=== PATIENT | male | born 1965 | race Caucasian/White ===

== ENCOUNTER → 2018-03-03 12:36 | Outpatient (CLI) | payer MEDICAID ==
[2015-08-10 09:23] VITALS: BMI 25.0
[~2018-03-03 12:36] MED LIST: GLUCOSAMINE & C1 CAP PO; MSM PO; MULTIPLE VITAMI1 TA1 PO; VIMOVO 500-201 EACH PO
== END | disposition home or self-care (01) ==
LOC: D.MRI 12:36
DX: M51.35 Other intervertebral disc degeneration, thoracolumbar region (principal)

== ENCOUNTER 2019-02-08 14:33 | Emergency (ER) | payer MEDICAID ==
[~2019-02-08] VITALS: Ht 190.5 cm; Wt 95.5 kg
[2019-02-08 14:47] VITALS: Ht 190.5 cm; Wt 95.5 kg
[2019-02-08] MEDS ORDERED: FISH OIL 1,0001 CA1 PO (14:48)
[2019-02-08 15:19] LABS: BASOPHILS 0.1 % (0-2); EOSINOPHILS 2.3 % (0-7); HEMATOCRIT 44.7 % (42.0-54.0); HEMOGLOBIN 15.9 g/dL (13.5-17.5); IMMATURE GRANULOCYTES 0.1 % (0-5); LYMPHOCYTES 29.7 % (15-50); MCH 31.7 pg (26.0-34.0); MCHC 35.6 g/dL (31.0-37.0); MEAN PLATELET VOLUME 9.8 fL (7.4-10.4); MONOCYTES 9.8 % (2-11); PLATELET COUNT 171 10x3/uL (130-400); RBC 5.02 10x6/uL (4.20-6.10); RDW 12.5 % (11.5-14.5); WBC 7.3 10x3/uL (4.8-10.8)
[2019-02-08 15:30] LABS: APTT 27.7 SECONDS (22.8-39.4); INR 1.04 (0.85-1.17); PROTIME 13.1 SECONDS (11.6-15.0)
[2019-02-08 15:41] LABS: ALBUMIN 3.6 g/dL (3.4-5.0); ALKALINE PHOSPHATASE 94 U/L (46-116); ALT (SGPT) 26 U/L (10-68); BILIRUBIN - TOTAL 1.01 mg/dL (0.2-1.3); CALC OSMOLALITY 280 mosm/kg (275-300); CALCIUM 9.3 mg/dL (8.5-10.1); CARBON DIOXIDE 25.2 mmol/L (21.0-32.0); CHLORIDE - SERUM 106 mmol/L (98-107); CREATININE - SERUM 1.1 mg/dL (0.6-1.3); GLUCOSE 107 mg/dL (74-106); POTASSIUM - SERUM 4.1 mmol/L (3.5-5.1); PROTEIN - SERUM 7.6 g/dL (6.4-8.2); SODIUM 141 mmol/L (136-145); UREA NITROGEN 13 mg/dL (7-18); eGFR NON AFRICAN AMERICAN 74 mL/min (90-120)
[2019-02-08 15:53] LABS: AMYLASE - SERUM 79 U/L (25-115); CKMB 0.7 U/L (0.0-3.6); CREATINE KINASE 73 UL (21-232); LIPASE 207 U/L (73-393)
[2019-02-08 15:55] LABS: TROPONIN-I < 0.017 ng/mL (0.000-0.060)
[2019-02-08] MEDS ORDERED: OMEPRAZOLE40 MG PO (16:33)
[2019-02-08 17:13] VITALS: BP 131/90
== END 2019-02-08 17:13 | disposition home or self-care (01) ==
LOC: D.ER 14:33
PROVIDERS: Family Medicine
DX: K21.9 Gastro-esophageal reflux disease without esophagitis (principal); R42 Dizziness and giddiness

== ENCOUNTER → 2019-07-02 10:34 | Outpatient (CLI) | payer MEDICAID ==
[2019-02-08 14:47] VITALS: BMI 26.3
[~2019-07-02 10:34] MED LIST changes: +FISH OIL 1,0001 CA1 PO; +OMEPRAZOLE40 MG PO
--- NOTE | 2019-07-02 11:20 | NUR ---
TIME OUT PERFORMED @ 11:10 A.M. PATIENT, , & PROCEDURED VERIFIED BY DR. ALBERTO AND LILIAN CHOW RT(R)
== END | disposition home or self-care (01) ==
LOC: D.RAD 10:30
PROVIDERS: ATTEND Orthopaedic Surgery
DX: S43.491A Other sprain of right shoulder joint, initial encounter (principal)

== ENCOUNTER 2019-07-29 06:45 | Day surgery (SDC) | payer MEDICAID ==
[~2019-07-29] VITALS: Ht 190.5 cm; Wt 93.0 kg
[2019-07-29 07:17] VITALS: BP 136/89; Ht 190.5 cm; Wt 93.0 kg
[2019-07-29] MEDS ORDERED: HYDROCODON-ACE1 EA10 PO (08:56)
--- NOTE | 2019-07-29 10:55 | NUR ---
PATIENT STATES FEELING MUCH BETTER, HAS WALKED TO BATHROOM WITHOUT UNSTEADINESS OR DIZZINESS, STATES NAUSEA IS GONE NOW, WANTS TO GO HOME. ALREADY DRESSED IN PERSONAL CLOTHING. DISCHARGED HOME VIA WHEELCHAIR TO PRIVATE VEHICLE WITH SPOUSE
--- NOTE | 2019-08-02 10:50 | OP ---
PATIENT NAME: TROY SAPP MEDICAL RECORD: [id number] :61 [facility] DATE: SURGEON: MAGDI HERNANDEZ MD DATE OF OPERATION: 07/29/2019 PREOPERATIVE DIAGNOSES: 1. Rotator cuff tear of the right shoulder. 2. Impingement syndrome of the right shoulder. 3. Acromioclavicular arthritis of the right shoulder. POSTOPERATIVE DIAGNOSES: 1. Rotator cuff tear of the right shoulder. 2. Impingement syndrome of the right shoulder. 3. Acromioclavicular arthritis of the right shoulder. PROCEDURES: 1. Arthroscopic rotator cuff repair of the right shoulder. 2. Arthroscopic distal clavicle excision done through separate incision - 1 cm. 3. Arthroscopic subacromial decompression, acromioplasty and bursectomy. SURGEON: Magdi Hernandez MD ANESTHESIA: General. INTRAOPERATIVE COMPLICATIONS: None. SUMMARY OF PATHOLOGIC FINDINGS: The patient had full thickness rotator cuff tear consistent with the preoperative MRI. Furthermore, the patient had grade IV chondromalacia of the acromioclavicular joint as well as impingement findings with downward sloping of the acromion and coracoacromial excoriation. OPERATIVE SUMMARY IN DETAIL: After obtaining the appropriate preoperative orthopedic surgery consent as well as anesthetic consultation, evaluation and clearance, the patient was brought to the operating room and placed on the operating table in supine position. After general laryngeal mask was administered, the patient was placed in left lateral decubitus position. All pressure points were well padded to include down leg peroneal pad as well as axillary roll. The patient was held firmly to the operating table using the vacuum pack suction system. Right upper extremity and shoulder were then prepped and draped in routine sterile fashion. The arm was held in the Ar[employer] traction boom at 30 degrees of forward flexion, 30 degrees of abduction, 10 pounds of traction laterally. Arthroscopy was established in the glenohumeral joint from the posterior portal. Anterior portal was established in the anterior safe interval. The patient was noted to have some substantial ALSPA lesion as well as full thickness tearing of the supraspinatus tendon. At this point, a transrotator cuff tendon portal was created for debridement of the supraspinatus tendon using the 5-0 resector. The patient's labrum was in relatively good position. He had a moderate amount of biceps tendinitis. Attention was then turned to the subacromial space. While in the subacromial space, the [place] surface tissue ablation system from [employer] was utilized to denude the undersurface of the acromion of all soft tissue elements and release the coracoacromial ligament. A 5-0 barrel bur was used to perform acromioplasty at the level of acromioclavicular joint. Having finished this, the AC joint was approached from an anterior portal using the bur under direct arthroscopic visualization. A 1-cm of the distal clavicle was excised. Next, attention was OPERATIVE REPORT [id number] TROY SAPP turned to the rotator cuff. A single inverted FiberTape was then placed to the rotator cuff tear. This was anchored laterally with a 5.5 SwiveLock from [employer] resulting in excellent reapproximation of the rotator cuff to the supraspinatus tendinous footprint on the greater tuberosity. At this point, the incisions were closed by PEDRO Barr. Sterile dressings were applied. The patient was awakened, taken to recovery room in stable condition. All final needle and sponge counts were correct. TRANSINT:[id number] Voice Confirmation ID: [id number] DOCUMENT ID: [id number] MAGDI HERNANDEZ MD at 1050 CC: [id number] DICTATION DATE: 07/30/19 1053 POINTING MACHINE OPERATOR: 07/30/19 1145 [facility] 07/29/19 [id number] [place] [address]
== END 2019-07-29 10:55 | disposition home or self-care (01) ==
LOC: D.OPS 06:45 → D.PAN 08:45 → D.OPS 08:45
PROVIDERS: ATTEND Orthopaedic Surgery
DX: M75.101 Unspecified rotator cuff tear or rupture of right shoulder, not specified as traumatic (principal); M75.41 Impingement syndrome of right shoulder; M19.011 Primary osteoarthritis, right shoulder

== ENCOUNTER → 2019-10-22 13:09 | Outpatient (CLI) | payer MEDICAID ==
[2019-07-29 07:17] VITALS: BMI 25.6
[~2019-10-22 13:09] MED LIST changes: +HYDROCODON-ACE1 EA10 PO
== END | disposition home or self-care (01) ==
LOC: D.RAD 13:09 → D.MRI 14:30
PROVIDERS: ATTEND Clinical Nurse Specialist Family Health
DX: M25.511 Pain in right shoulder (principal)

== ENCOUNTER 2019-12-13 08:25 | Day surgery (SDC) | payer MEDICAID ==
[~2019-12-13] VITALS: Ht 190.5 cm; Wt 93.0 kg
[~2019-12-13 08:25] MED LIST changes: +IBUPROFEN800 MG PO
[2019-12-13 08:53] VITALS: BP 106/73; Ht 190.5 cm; Wt 93.0 kg
[2019-12-13] MEDS ORDERED: HYDROCODON-ACE1 EA10 PO (10:36)
--- NOTE | 2019-12-13 12:35 | NUR ---
PT DC INSTRUCTIONS REVIEWED AT THIS TIME, PT AND FAMILY VERBALIZE UNDERSTANDING. PT IV REMOVED AT THIS TIME, INTACT, NO REDNESS OR SWELLING NOTED AT SITE. SITE DRESSED WITH BANDIAD AT THIS TIME, NO BLEEDING NOTED AT SITE.
--- NOTE | 2019-12-13 12:40 | NUR ---
PT LEAVING OPS AT THIS TIME VIA WC.
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
== END 2019-12-13 12:40 | disposition home or self-care (01) ==
LOC: D.OPS 08:25 → D.PAN 19:45
PROVIDERS: ATTEND Orthopaedic Surgery
DX: M25.511 Pain in right shoulder (principal); M75.121 Complete rotator cuff tear or rupture of right shoulder, not specified as traumatic